=== PATIENT | male | born 1970 | race Caucasian/White ===

== ENCOUNTER 2019-10-24 12:03 | Emergency (ER) | payer BC, OTHER ==
[2019-10-24 12:44] VITALS: BP 119/96; PULSE 100
--- NOTE | 2019-10-24 13:01 | EDM.PDOC ---
ED HPI GENERAL MEDICAL PROBLEM - General Chief Complaint: Genitourinary Problem Stated Complaint: STOMACH COMPLAINT Time Seen by Provider: 10/24/19 12:38 Source of Information: Reports: Patient, RN Notes Reviewed History Limitations: Reports: No Limitations - History of Present Illness INITIAL COMMENTS - FREE TEXT/NARRATIVE: Patient is a 49-year-old male who presents to the ED for the evaluation of a possible urinary tract infection. The patient notes that for the past 2-1/2 weeks, he has had burning to his penis, intermittently, that worsens with voiding. Patient notes that he is having increased urinary frequency, and urgency as well, he states sometimes when he rushes to the bathroom, only a small amount of urine comes out at a time, like 5 or 6 drops. The patient notes that over the last 2 days, he has developed some suprapubic pain, and pain that radiates into his left flank. He does have a history of kidney stones , but has not had a stone for 2 years that he thinks. Does have a urologist and has not seen them for 2 years for the stones. Patient notes that the pain is much different than his kidney stones, so he does not believe that he has a kidney stone today, he also denies any prostate issues. He denies any fever/ chills, and vital signs are stable at time of triage. Patient is sitting comfortably on the chair, not pacing around the room. 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 He notes that he is happily for 30 years , and is not concerned about any sort of STDs at this time. He does note that he takes medications for blood pressure issues. Lower Abdomen Pain Score (Numeric/FACES): 8 - Related Data Allergies Allergy/AdvReac Type Severity Reaction Status Date / Time No Known Allergies Allergy Verified 10/24/19 12:44 Home Meds: Home Meds Losartan/Hydrochlorothiazide [Losartan-HCTZ 100-12.5 MG] 0.5 tab PO DAILY [History] hydrOXYzine pamoate [Hydroxyzine Pamoate] 25 mg PO DAILY 10/24/19 [History] Past Medical History Cardiovascular History: Reports: Hypertension Genitourinary History: Reports: Renal Calculus - Past Surgical History Male Surgical History: Reports: Kidney Stone Extraction, Lithotripsy ([facility]) Social & Family History - Tobacco Use Smoking Status *Q: Never Smoker - Caffeine Use Caffeine Use: Reports: Coffee - Alcohol Use Alcohol Use History: Yes Days Per Week of Alcohol Use: 7 Alcohol Use in Last Twelve Months: Yes Alcohol Use Frequency: Daily - Recreational Drug Use Recreational Drug Use: No ED ROS GENERAL - Review of Systems Review Of Systems: Comprehensive ROS is negative, except as noted in HPI. ED EXAM, RENAL/ - Physical Exam Exam: See Below Exam Limited By: No Limitations General Appearance: Alert, WD/WN, No Apparent Distress Ears: Normal External Exam Nose: Normal Inspection Throat/Mouth: Normal Inspection, Normal Lips, Normal Teeth, Normal Gums, Normal Oropharynx, Normal Voice, No Airway Compromise Head: Atraumatic, Normocephalic Neck: Normal Inspection Respiratory/Chest: No Respiratory Distress, Lungs Clear, Normal Breath Sounds, No Accessory Muscle Use, Chest Non-Tender Cardiovascular: Normal Peripheral Pulses, Regular Rate, Rhythm, No Murmur GI/Abdominal: Normal Bowel Sounds, Soft, No Distention, No Mass, Tender (mild suprapubid tenderness) (Male) Exam: Deferred. No: Penile Lesions (per pt report), Urethral Discharge (per pt report) Rectal (Males) Exam: Deferred Back Exam: Normal Inspection, Full Range of Motion. No: CVA Tenderness (L), CVA Tenderness (R) Extremities: Normal Inspection, Normal Capillary Refill Neurological: Alert, Oriented, Normal Cognition, No Motor/Sensory Deficits Psychiatric: Normal Affect, Normal Mood Skin Exam: Warm, Dry, Intact, Normal Color, No Rash Course - Vital Signs Last Recorded V/S: Last Vital Signs Temp 98 F 10/24/19 12:38 Pulse 100 10/24/19 12:38 Resp 16 10/24/19 12:38 BP 119/96 H 10/24/19 12:38 Pulse Ox 97 10/24/19 12:38 - Orders/Labs/Meds Labs: Laboratory Tests 10/24/19 Range/Units 12:50 Urine Color Yellow (Yellow) Urine Appearance Slt cloudy H (Clear) Urine pH 6.0 (5.0-8.0) Ur Specific Harshaw 1.025 (1.005-1.030) Urine Protein 1+ H (Negative) Urine Glucose (UA) Negative (Negative) Urine Ketones 1+ H (Negative) Urine Occult Blood 3+ H (Negative) Urine Nitrite Negative (Negative) Urine Bilirubin Negative (Negative) Urine Urobilinogen 0.2 (0.2-1.0) Ur Leukocyte Esterase Trace H (Negative) Urine RBC 50-75 H (0-5) /hpf Urine WBC 0-5 (0-5) /hpf Ur Squamous Epith Cells 0-5 (0-5) /hpf Urine Bacteria Not seen (FEW) /hpf Urine Mucus Few (FEW) /hpf - Re-Assessments/Exams Free Text/Narrative Re-Assessment/Exam: 10/24/19 13:00 Patient presents to the ED for the evaluation of a possible UTI. Have ordered urinalysis at time of triage, will hold off on a CT and bloodwork, as the patient would like as little done as possible to evaluate his problems, this is fine with me at this time. He does not look toxic, and vitals are stable. 10/24/19 13:27 Did go over the urine results at this time, patient still does not want a CT done, and will follow-up with his urologist tomorrow or the next day. At this time I will treat him for a urinary tract infection, and discharge him home with general recommendations. We will have him follow-up with his primary care provider for other laboratory evaluation as needed for kidney function. Departure - Departure Time of Disposition: 13:32 Disposition: Home, Self-Care 01 Condition: Good Clinical Impression: UTI, Urinary tract infectious disease - Discharge Information *PRESCRIPTION DRUG MONITORING PROGRAM REVIEWED*: No *COPY OF PRESCRIPTION DRUG MONITORING REPORT IN PATIENT MARYANNE: No Instructions: Urinary Tract Infection, Adult, [id number] Referrals: Nilo Gamez Jr, MD [Primary Care Provider] - Forms: ED Department Discharge Additional Instructions: You have been evaluated in the ED for your urinary symptoms. Your urinalysis was consistent with an acute urinary tract infection. Your urine was sent for culture, and you will be notified if you should need a change in your antibiotic. This may take up to 48 hours to result. You may take AZO for urinary pain relief. This is available over the counter, and can be attained at any retail store like [employer] or any pharmacy. Please be aware that this medication will make your urine turn orange. You have been given a prescription for Ciprofloxacin, 500 mg 1 tablet 2 times a day for 7 days. Please increase your oral fluid intake and try to stay adequately hydrated. Highly and strongly recommend that you follow-up with your urologist and/or primary care provider, within the next day or 2 for recheck your symptoms and to make sure that everything is getting better as expected. Please return to the ED if your symptoms change or worsen. Sepsis Event Note - Evaluation Sepsis Screening Result: No Definite Risk - Focused Exam Vital Signs: Vital Signs Temp Pulse Resp BP Pulse Ox 10/24/19 12:38 98 F 100 16 119/96 H 97 Date Exam was Performed: 10/24/19 Time Exam was Performed: 13:27
== END 2019-10-24 13:38 | disposition home or self-care (01) ==
LOC: JD.ED 12:03
DX: N39.0 Urinary tract infection, site not specified (principal); I10 Essential (primary) hypertension; Z87.442 Personal history of urinary calculi; Z79.899 Other long term (current) drug therapy
CPT/HCPCS: 81001; 87086; 99283

== ENCOUNTER 2021-11-18 18:09 | Emergency (ER) | payer BC ==
[2021-11-18 18:29] VITALS: BP 132/109; PULSE 106
[2021-11-18] MEDS ORDERED: Ketorolac 60 MG/2 ML SDV IM ONE (18:30)
[2021-11-18] MEDS ORDERED: Ketorolac 30 MG/ML SDV IVPUSH ONE (18:53)
== END 2021-11-18 19:44 | disposition home or self-care (01) ==
LOC: JD.ED 18:09
DX: G89.29 Other chronic pain (principal); M25.562 Pain in left knee; F10.920 Alcohol use, unspecified with intoxication, uncomplicated; I10 Essential (primary) hypertension; Z79.899 Other long term (current) drug therapy
CPT/HCPCS: 73562; 96374; 99284; J1885